=== PATIENT | male | born 2000 | race Caucasian/White ===

== ENCOUNTER 2019-09-22 10:52 | Emergency (ER) | payer SELFPAY ==
[~2019-09-22] VITALS: Ht 175 cm; Wt 68.0 kg
[~2019-09-22 10:52] MED LIST: SULF1TAB38 PO
[2019-09-22] MEDS ORDERED: HYDR-3870 PO (11:30)
[2019-09-22] MEDS ORDERED: DOXY100T2 PO (11:30)
--- NOTE | 2019-09-22 11:31 | ED Integumentary General ---
General Chief Complaint: Skin/Wound Problems Stated Complaint: R ARM ABSCESS Nursing Triage Note: pt reports an abcess to right armpit that started about 1 week ago and has gotten worse. Pt attempted to puncture abcess with push pin but got nothing out of it. pain 8/10 Source: patient Exam Limitations: no limitations History of Present Illness Date Seen by Provider: Sep 22, 2019 Time Seen by Provider: 11:27 Initial Comments To ER with reports of an abscess to the right axilla for about one week. Timing/Duration: just prior to arrival Severity: moderate Associated Symptoms: denies symptoms Allergies and Home Medications Allergies Coded Allergies: No Known Drug Allergies (Unverified , 09/22/19) Home Medications Doxycycline Hyclate 100 Mg Tablet, 100 MG PO BID Prescribed by: LOU SHEPPARD on 09/22/19 1130 Hydrocodone/Acetaminophen 1 Each Tablet, 1 EACH PO Q4-6HR PRN for PAIN-MODERATE Prescribed by: LOU SHEPPARD on 09/22/19 1130 Trimethoprim/Sulfamethoxazole 1 Ea Tablet, 0.5 EA PO BID Prescribed by: YOBANY WHELAN on 09/03/08 4064 Patient Home Medication List Home Medication List Reviewed: Yes Review of Systems Review of Systems Constitutional: see HPI EENTM: see HPI Respiratory: no symptoms reported Cardiovascular: no symptoms reported Genitourinary: no symptoms reported Musculoskeletal: no symptoms reported Skin: see HPI Psychiatric/Neurological: No Symptoms Reported Endocrine: No Symptoms Reported Past Yzrerlp-[id number]-Jqsbth Hx Patient Social History Recent Foreign Travel: No Contact w/Someone Who Travel: No Recent Infectious Disease Expo: No Physical Abuse: No Sexual Abuse: No Physical Exam Vital Signs Vital Signs - First Documented 09/22/19 11:00 Temp 37.0 Pulse 85 Resp 20 B/P (MAP) 73/ Pulse Ox 97 Capillary Refill : Less Than 3 Seconds General Appearance: WD/WN, no apparent distress HEENT: PERRL/EOMI, normal ENT inspection Neck: non-tender, full range of motion Respiratory: no respiratory distress, no accessory muscle use Neurologic/Psychiatric: alert, normal mood/affect, oriented x 3 Skin: normal color, warm/dry Skin Problem Character: abscess (abscess to the right axilla) Procedures/Interventions I&D : Blade Size: 11 Progress/Results/Core Measures Results/Orders My Orders Orders - LOU SHEPPARD [employer] Doxycycline Hyclate Tablet (Vibramycin T (09/22/19 11:45) Hydrocodone/Apap 5/325 Tablet (Lortab 5 (09/22/19 11:45) Vital Signs/I&O 09/22/19 11:00 Temp 37.0 Pulse 85 Resp 20 B/P (MAP) 73/ Pulse Ox 97 Departure Impression Primary Impression: Abscess Disposition: 01 HOME, SELF-CARE Condition: Stable Departure-Patient Inst. Decision time for Depature: 11:28 [facility]errals: [facility] (PCP/Family) Primary Care Physician Patient Instructions: Abscess Incision and Drainage (DC) Add. Discharge Instructions: 1. Warm compresses to the area 2. Return to ER for any concerns 3. Antibiotics and pain medication as directed. Follow-up with your doctor later this week. All discharge instructions reviewed with patient and/or family. Voiced understanding. Scripts Hydrocodone/Acetaminophen (Lorcet 5-325 mg Tablet) 1 Each Tablet 1 EACH PO Q4-6HR PRN for PAIN-MODERATE MDD 10 for 7 Days, #10 TAB Prov: LOU SHEPPARD APRN 09/22/19 Doxycycline Hyclate (Doxycycline Hyclate) 100 Mg Tablet 100 MG PO BID, #20 TAB 0 Refills Prov: LOU SHEPPARD APRN 09/22/19 Work/School Note: Work Release Form Date Seen in the Emergency Department: Sep 22, 2019 Return to Work: Sep 24, 2019 LOU SHEPPARD APRN Sep 22, 2019 11:31
[2019-09-22 11:39] VITALS: BP 123/73
[2019-09-22] MEDS ORDERED: HYDROcodone/APAP 5 MG/325 MG (LORTAB) TAB PO ONE (11:45)
[2019-09-22] MEDS ORDERED: DOXYCYCLINE 100 MG (VIBRAMYCIN) TABLET PO SCH (11:45)
== END 2019-09-22 11:40 | disposition home or self-care (01) ==
LOC: EDUNIT# 10:52 → ER 10:53
DX: L02.411 Cutaneous abscess of right axilla (principal)
CPT/HCPCS: 87070; 87077; 87186; 87205; 99283